=== PATIENT | female | born 1945 | race Caucasian/White ===

== ENCOUNTER 2021-05-18 16:34 | Emergency (ER) | payer MEDICARE, OTHER ==
[~2021-05-18] VITALS: Ht 165.1 cm; Wt 69.8 kg
[~2021-05-18 16:34] MED LIST: NEURONTIN 400M400 M2; NEXIUM 40 MG CA40 M1; SYNTHROID112 MCG; VYTORIN 10-401 EACH
[2021-05-18] MEDS ORDERED: TOPROL XL50 MG PO (16:50)
[2021-05-18] MEDS ORDERED: TESSALON PERLE100 MG PO (18:24)
[2021-05-18 18:25] VITALS: BP 153/86
== END 2021-05-18 18:28 | disposition home or self-care (01) ==
LOC: M.ERS 16:34
DX: U07.1 COVID-19 (principal); I10 Essential (primary) hypertension; E78.00 Pure hypercholesterolemia, unspecified; K21.9 Gastro-esophageal reflux disease without esophagitis; Z90.89 Acquired absence of other organs; Z90.49 Acquired absence of other specified parts of digestive tract; Z79.899 Other long term (current) drug therapy; Z87.891 Personal history of nicotine dependence; Z88.0 Allergy status to penicillin; Z88.7 Allergy status to serum and vaccine